=== PATIENT | female | born 1970 | race Caucasian/White ===

== ENCOUNTER 2021-12-04 14:46 | Emergency (ER) | payer OTHER ==
--- OUTSIDE RECORDS SUMMARY | 2021-12-04 15:49 | XMS REPORT | Continuity of Care Document ---
:1970 Author Organization [facility] t Address [address] [place] [address] Care Team Providers Name Role Phone Vladimir Tinajero Primary Care Physician MARBIN JIMENEZ Attending Clinician Unavailable Marbin Brar Attending Clinician Doctor Unassigned, [place] Attending Clinician Unavailable Problems Condition Condition Condition Status Onset Resolution Last Treating Co mments Source Name Details Category Date Date Treatment Clinician Date Diabetes Diabetes Disease Active 2013-04 Overview: Un taylor mellitus mellitus 0-28 Formattin ity of type 2, type 2, 00:00: g of this [place] uncontroll uncontroll 00 note Me dical ed, ed, might be Branch without without different complicati complicati from the ons ons original. Hgb a1c 12.1 on 09/15/13ICD 10 Diagnosis Term Guest Services Attendant Utility Not immune Not immune Disease Active Overview : Univers to rubella to rubella 30 Formattin ity of 00:00: g of this [place] 00 note Medical might be Branch different from the original. ICD10 Diagnosis Term Guest Services Attendant Utility Encounter Encounter Disease Active Overview: Univers for for 09-09 Formattin ity of routine routine 00:00: g of this [place] gynecologi gynecologi 00 note Me dical yakov yakov might be Branch examinatio examinatio different n n from the original. ICD10 Diagnosis Term Guest Services Attendant Utility Overweight Overweight Disease Active Overview : Univers 09-09 Formattin ity of 00:00: g of this [place] 00 note Medical might be Branch different from the original. ICD10 Diagnosis Term Guest Services Attendant Utility Vaginitis Vaginitis Disease Active Overview: Univers and and 09-09 Formattin ity of vulvovagin vulvovagin 00:00: g of this [place] itis itis 00 note Medical might be Branch different from the original. ICD10 Diagnosis Term Guest Services Attendant Utility Prehyperte Prehyperte Disease Active U nivers nsion nsion 09-09 ity of 00:00: [place] [address] Medical Branch Allergies, Adverse Reactions, Alerts Allergy Allergy Status Severity Reaction(s) Onset Inactive Treating Comm ents Source Name Type Date Date Clinician NO KNOWN Drug Active [facility] ALLERGIE Class ity of [facility] Social History Social Habit Start Date Stop Date Quantity Comments Source [facility] of [facility] Exposure to 2021-10-07 2021-10-17 Not sure [facility] SARS-CoV-2 00:00:00 14:30:00 [facility] (event) Branch Alcohol intake 2021-10-17 2021-10-17 Current [facility] 00:00:00 00:00:00 non-drinker of [facility] alcohol (finding) Branch Sex Assigned At [birth year] Universit y of 00:00:00 00:00:00 [facility] Smoking Status Start Date Stop Date Source Current every day smoker [facility] Medications Ordered Filled Start Stop Current Ordering Indication Dosage Frequency Signature Comments Components Source Medication Medication Date Date Medication? Clinician (SIG) Name Name erythromyci 2021- Yes [id number] .5[in_u Place 0.5 Univers n 5 mg/gram 10-17 9102 s] Inches in it y of (0.5 %) 00:00: 04:59 left eye 2 Reji as ophthalmic 00 :00 (two) Medical ointment times Branch daily for 7 days. Continue until you follow up with eye doctor. phenazopyri Yes [id number] 200mg Take 1 Univers dine 200 mg 3-07 tablet by ity of tablet 00:00: mouth 3 (three) Medical times Branch daily. ondansetron Yes [id number] 4mg Take 1 Univers (ZOFRAN 3-07 tablet by ity of ODT) 4 mg 00:00: mouth [place] disintegrat 00 every 8 Medic al ing tablet (eight) Branch hours as needed for Nausea and Vomiting (N/V). phenazopyri Yes [id number] 200mg Take 1 Univers dine 200 mg 3-07 tablet by ity of tablet 00:00: mouth 3 [place] 00 (three) Medical times Branch daily. ondansetron Yes [id number] 4mg Take 1 Univers (ZOFRAN 3-07 tablet by ity of ODT) 4 mg 00:00: mouth [place] disintegrat 00 every 8 Medic al ing tablet (eight) Branch hours as needed for Nausea and Vomiting (N/V). metFORMIN Yes TAKE ONE Univ ers (GLUCOPHAGE 9-07 TABLET BY ity of ) 500 mg 00:00: MOUTH [place] tablet 00 TWICE Medical DAILY WITH Branch MEALS metFORMIN Yes TAKE ONE Univ ers (GLUCOPHAGE 9-07 TABLET BY ity of ) 500 mg 00:00: MOUTH [place] tablet 00 TWICE Medical DAILY WITH Branch MEALS atorvastati 2013-04 Yes [id number] 20mg Take 1 Tab Univers n (LIPITOR) 0-28 by mouth ity of 20 mg 00:00: at [place] tablet 00 bedtime. Medical Branch atorvastati 2013-04 Yes [id number] 20mg Take 1 Tab Univers n (LIPITOR) 0-28 by mouth ity of 20 mg 00:00: at [place] tablet 00 bedtime. Medical Branch IBUPROFEN Yes Take by Unive rs ORAL 5-27 mouth. ity of 16:30: [address] IBUPROFEN Yes Take by Unive rs ORAL 5-27 mouth. ity of 16:30: [address] Branch varenicline Yes [id number] 0.5 mg qd Univers (CHANTIX) 5-27 day 1-3. ity of 0.5 mg 00:00: Day 4-7; [place] tablet 00 0.5 mg Medical BID. Day Branch 8-12 weeks 1mg BID. Start treatment one week prior to stop smoking dates. varenicline Yes [id number] 0.5 mg qd Univers (CHANTIX) 5-27 day 1-3. ity of 0.5 mg 00:00: Day 4-7; [place] tablet 00 0.5 mg Medical BID. Day Branch 8-12 weeks 1mg BID. Start treatment one week prior to stop smoking dates. Immunizations Ordered Filled Immunization Date Status Comments Sourc e Immunization Name Name TDAP 2012-09-09 Completed University 00:00:00 [facility] TDAP 2012-09-09 Completed [facility] 00:00:00 [facility] Vital Signs Vital Name Observation Time Observation Value Comments Source Systolic blood 2021-10-17 19:34:00 139 mm[Hg] [facility] Diastolic blood 2021-10-17 19:34:00 86 mm[Hg] [facility]ive [facility] Heart rate 2021-10-17 19:34:00 90 /min [facility] Body temperature 2021-10-17 19:34:00 36.44 Alana [facility] Respiratory rate 2021-10-17 19:34:00 18 /min [facility] Body weight 2021-10-17 19:34:00 84.823 kg [facility] BMI 2021-10-17 19:34:00 30.18 kg/m2 [facility] Oxygen saturation in 2021-10-17 19:34:00 97 /min [facility] Arterial blood by [facility] Pulse oximetry Branch Procedures Procedure Date / Time Performing Clinician Source Performed URINALYSIS 2021-10-17 20:32:00 Marbin Jimenez [facility] CONSENT/REFUSAL FOR 2021-10-17 19:33:17 [facility] AND Name Medical [place] TREAT[facility] NOTICE OF PRIVACY 2021-10-17 19:30:23 Doctor Unassigned, No Univ [facility] PRACTICES Name [facility] Encounters Start End Encounter Admission Attending Care Care Encounter Source Date/Time Date/Time Type Type Clinicians Facility Department ID 2021-10-17 2021-10-17 Emergency X TONY CABISI ERT [id number] Univers 14:35:00 16:31:00 MARBIN castellon [facility] 2021-10-17 2021-10-17 Emergency Tony [facility] [id number] Univers 14:35:00 16:31:00 Marbin WHITNIELS [id number] ity of [place] [id number] [facility] [id number] [facility] 084 Branch 2021-10-17 2021-10-17 Orders Doctor CEZAR [id number] Univers 00:00:00 00:00:00 Only Unassigned, RENÉ [id number] ity of [place] [facility] [id number] Reji [id number] [facility] 009 Branch Results This patient has no known results.
--- NOTE | 2021-12-04 16:57 | RAD REPORT ---
EXAM DESCRIPTION: RAD - Wrist Left 3 View - 12/04/2021 4:47 pm CLINICAL HISTORY: PAIN, swelling, palpable soft tissue mass, no precipitating injury COMPARISON: <Comparisons> FINDINGS: No fracture is identified. There is no dislocation or periosteal reaction noted. No foreig n body or other soft tissue abnormality. No radiographic correlate for the clinically palpable mass. IMPRESSION: Negative left wrist examination.
--- NOTE | 2021-12-04 17:09 | EDPHYS ---
Physician Documentation [facility] Name: Harika Brice Age: 51 yrs Sex: Female : 1970 Arrival Date: 12/04/2021 Time: 14:51 Bed DIS3 Private MD: ED Physician Windy Alicia HPI: 12/05 00:08 This 51 yrs old Female presents to ER via Ambulatory with complaints of Wrist Pain, kb Wrist Injury. 00:08 The patient or guardian reports pain, swelling, tenderness. The complaints affect the kb left wrist diffusely. Context: The problem was sustained at home, resulted from a repetitive motion. Onset: The symptoms/episode began/occurred yesterday. Modifying factors: The symptoms are alleviated by nothing, the symptoms are aggravated by movement. Associated signs and symptoms: The patient has no apparent associated signs or symptoms. The patient has not experienced similar symptoms in the past. The patient has not recently seen a physician. Patient reports pain and swelling to left wrist. States she lifts a lot at work and believes it is due to repetitive motion. Full range of motion of wrist.. Historical: - Allergies: 12/04 15:04 NKDA; aa5 - PMHx: 15:04 Depressive disorder; Hypercholesterolemia; Diabetes Mellitus; aa5 - PSHx: 15:04 Cholecystectomy; aa5 - Immunization history:: Adult Immunizations unknown. - Social history:: Smoking status: Patient reports the use of cigarette tobacco products, smokes one pack cigarettes per day. ROS: 12/05 00:07 Constitutional: Negative for fever, chills, and weight loss. kb MS/extremity: Positive for pain, swelling, tenderness, of the left wrist. All other systems are negative. Exam: 00:07 Constitutional: This is a well developed, well nourished patient who is awake, alert, kb and in no acute distress. Head/Face: Normocephalic, atraumatic. ENT: Moist Mucous membranes Cardiovascular: Regular rate and rhythm with a normal S1 and S2. No gallops, murmurs, or rubs. No pulse deficits. Respiratory: Respirations even and unlabored. No increased work of breathing. Talking in full sentences Skin: Warm, dry with normal turgor. Normal color. Neuro: Awake and alert, GCS 15, oriented to person, place, time, and situation. Moves all extremities. Normal gait. Psych: Awake, alert, with orientation to person, place and time. Behavior, mood, and affect are within normal limits. 00:07 Musculoskeletal/extremity: Extremities: grossly normal except: noted in the right wrist: pain, swelling, ROM: intact in all extremities, Circulation is intact in all extremities. Sensation intact. Vital Signs: 12/04 15:02 BP 142 / 78; Pulse 88; Resp 18 S; Temp 97.5(TE); Pulse Ox 95% on R/A; Weight 78.47 kg aa5 (R); Height 5 ft. 6 in. (167.64 cm) (R); 15:02 Body Mass Index 27.92 (78.47 kg, 167.64 cm) aa5 MDM: 15:14 Patient medically screened. kb 12/05 00:06 Data reviewed: vital signs, nurses notes. Data interpreted: Pulse oximetry: on room air kb is 95 %. Interpretation: normal. Counseling: I had a detailed discussion with the patient and/or guardian regarding: the historical points, exam findings, and any diagnostic results supporting the discharge/admit diagnosis, radiology results, the need for outpatient follow up, a orthopedic surgeon, to return to the emergency department if symptoms worsen or persist or if there are any questions or concerns that arise at home. 12/04 15:17 Order name: Wrist Left (3 View) XRAY; Complete Time: 16:58 kb Administered Medications: 12/04 17:12 Not Given (Patient Refused): Ibuprofen 600 mg PO once iw 17:13 Drug: KeFLEX (cephalexin) 500 mg Route: PO; iw 17:20 Drug: Tylenol #3 (300 mg-30 mg) 1 tablet Route: PO; iw Disposition Summary: 12/04/21 17:09 Discharge Ordered Location: Home kb Condition: Stable kb Diagnosis - Cellulitis of left upper limb kb Followup: kb - With: Emergency Department - When: As needed - Reason: Worsening of condition Followup: kb - With: Private Physician - When: 2 - 3 days - Reason: Recheck today's complaints, Continuance of care, Re-evaluation by your physician Discharge Instructions: - Discharge Summary Sheet kb - Cellulitis, Adult, [id number] kb Forms: - Medication Reconciliation Form kb - Thank You Letter kb - Work release form kb - Antibiotic Education kb - Prescription Opioid Use kb Prescriptions: - Cephalexin 500 mg Oral Capsule - take 1 capsule by ORAL route every 8 hours for 10 days; 30 capsule; Refills: 0, kb Product Selection Permitted Signatures: Dispatcher [employer] Monica Leal, EUSEBIO-Renetta KAPLAN-Marichuy Pack RN RN iw Charlene Linn RN RN aa5 Corrections: (The following items were deleted from the chart) 15: 15:04 Home Meds: metformin 500 mg Oral Tb24; aa5 aa5 15:05 15:04 PMHx: Diabetes - NIDDM; aa5 aa5 12/05 00:07 00:07 MS/extremity: Positive for pain, swelling, tenderness, of the right wrist, kb kb
--- NOTE | 2021-12-04 17:09 | ER ---
Nurse's Notes [facility] Name: Harika Brice Age: 51 yrs Sex: Female : 1970 Arrival Date: 12/04/2021 Time: 14:51 Bed DIS3 Private MD: Diagnosis: Cellulitis of left upper limb Presentation: 12/04 15:02 Chief complaint: Patient states: "a few days ago my left wrist started swelling, aa5 hurting, and now it has a knot". Pt states "I was picking up something at work and the pain got worse". Coronavirus screen: At this time, the client does not indicate any symptoms associated with coronavirus-19. Ebola Screen: No symptoms or risks identified at this time. Initial Sepsis Screen: Does the patient meet any 2 criteria? No. Patient's initial sepsis screen is negative. Does the patient have a suspected source of infection? No. Patient's initial sepsis screen is negative. Risk Assessment: Do you want to hurt yourself or someone else? Patient reports no desire to harm self or others. Onset of symptoms was November 2021. 15:02 Method Of Arrival: Ambulatory aa5 15:02 Acuity: BRENNON 4 aa5 Historical: - Allergies: 15:04 NKDA; aa5 - PMHx: 15:04 Depressive disorder; Hypercholesterolemia; Diabetes Mellitus; aa5 - PSHx: 15:04 Cholecystectomy; aa5 - Immunization history:: Adult Immunizations unknown. - Social history:: Smoking status: Patient reports the use of cigarette tobacco products, smokes one pack cigarettes per day. Vital Signs: 15:02 BP 142 / 78; Pulse 88; Resp 18 S; Temp 97.5(TE); Pulse Ox 95% on R/A; Weight 78.47 kg aa5 (R); Height 5 ft. 6 in. (167.64 cm) (R); 15:02 Body Mass Index 27.92 (78.47 kg, 167.64 cm) aa5 ED Course: 14:51 Patient arrived in ED. am2 14:57 Monica Durand FNP-C [facility]. kb 14:57 Windy Alicia MD is Attending Physician. kb 15:02 Arm band placed on. aa5 15:04 Triage completed. aa5 16:49 Wrist Left (3 View) XRAY In Process Unspecified. EDMS 17:05 Marichuy Wong, RN is Primary Nurse. iw Administered Medications: 17:12 Not Given (Patient Refused): Ibuprofen 600 mg PO once iw 17:13 Drug: KeFLEX (cephalexin) 500 mg Route: PO; iw 17:20 Drug: Tylenol #3 (300 mg-30 mg) 1 tablet Route: PO; iw Outcome: 17:09 Discharge ordered by . kb 17:31 Patient left the ED. iw Signatures: Dispatcher [employer] EDMS Monica Durand, WIRE SPLICER-C WIRE SPLICER-Ckb Marichuy Wong, RN RN iw Charlene Linn RN RN aa5 Nanda Duarte am2 Corrections: (The following items were deleted from the chart) 15:05 15:04 Home Meds: metformin 500 mg Oral Tb24; aa5 aa5 15:05 15:04 PMHx: Diabetes - NIDDM; aa5 aa5
[2021-12-04] MEDS ORDERED: CEPHALEXIN 250 MG CAP ONE (17:17)
[2021-12-04] MEDS ORDERED: IBUPROFEN 200 MG TAB PO ONE (17:17)
[2021-12-04] MEDS ORDERED: CODEINE 30MG/APAP 300MG TAB ONE (17:29)
[2021-12-04 18:02] VITALS: BP 142/78; TEMP 97.5; O2SAT 95
== END 2021-12-04 17:31 | disposition home or self-care (01) ==
LOC: ER 14:46
DX: L03.114 Cellulitis of left upper limb (principal); E11.9 Type 2 diabetes mellitus without complications; F17.210 Nicotine dependence, cigarettes, uncomplicated
CPT/HCPCS: 99283